=== PATIENT | male | born 1940 | race Caucasian/White ===

== ENCOUNTER 2018-03-29 14:39 | Emergency (ER) | payer MEDICARE, OTHER ==
[2018-03-29 15:53] LABS: #Basophils 0.1 thou/uL (0.0-0.2); #Eosinphils 0.6 thou/uL (0.0-0.7); #Lymphocytes 2.5 thou/uL (1.20-3.40); #Neutrophils 6.4 thou/uL (1.40-6.50); %Basophils 1.3 % (0.0-1.0); %Eosinophils 5.9 % (0.0-10.0); %Lymphocytes 23.6 % (21.0-51.0); %Monocytes 9.1 % (0.0-10.0); %Neutrophils 60.2 % (42.0-75.0); Hemoglobin 12.3 g/dL (14.0-18.0); Mean Corpuscular HGB CONC 33.4 g/dL (32.0-36.0); Mean Corpuscular Hemoglobin 29.6 pg (27.0-31.0); Mean Corpuscular Volume 88.6 fL (78.0-98.0); Mean Platelet Volume 7.5 fL (7.4-10.4); Platelet Count 270 thou/uL (130-400); RBC Distribution Width 12.6 % (11.5-14.5); Red Blood Cell (RBC) Count 4.15 mill/uL (4.70-6.10); White Blood Cell (WBC) Count 10.6 thou/uL (4.8-10.8)
[2018-03-29] MEDS ORDERED: HYDROcodone/Acetaminophen 10/325 mg Tablet ONE (15:55)
[2018-03-29] MEDS ORDERED: Enoxaparin Sodium 60 MG/0.6 ML SYRINGE ONE (15:55)
[2018-03-29] MEDS ORDERED: Enoxaparin Sodium 40 MG/0.4 ML SYRINGE ONE (15:55)
[2018-03-29 15:58] LABS: PTT 27.7 SEC (22.9-36.1); Prothrombin Time 13.5 SEC (12.0-14.7)
[2018-03-29 15:59] LABS: D-Dimer Test 2.57 *mcg/mL (0.27-0.43)
[2018-03-29 16:05] LABS: Anion Gap 15 mmol/L (10-20); BUN (Urea Nitrogen) 14 mg/dL (8.4-25.7); Calc. Creatinine Clearance 0 mL/min (70-130); Calcium 10.2 mg/dL (7.8-10.44); Carbon Dioxide 21 mmol/L (23-31); Chloride 108 mmol/L (98-107); Estimated GFR-MDRD 63; Glucose 196 mg/dL (83-110); Potassium 3.7 mmol/L (3.5-5.1); Sodium 140 mmol/L (136-145)
== END 2018-03-29 18:22 | disposition short-term general hospital (02) ==
LOC: MADERS 14:39 → EDSEX 14:39 → MADERS 18:22
DX: M79.89 Other specified soft tissue disorders (principal); G51.0 Bell's palsy; E11.9 Type 2 diabetes mellitus without complications; Z79.899 Other long term (current) drug therapy; Z79.84 Long term (current) use of oral hypoglycemic drugs
CPT/HCPCS: 80048; 84484; 85025; 85379; 85610; 85730; 96372; J1650

== ENCOUNTER 2024-01-28 11:56 | Emergency (ER) | payer OTHER ==
[2024-01-28] MEDS ORDERED: HYDROcodone/Acetaminophen 5/325 mg Tablet ONE (12:38)
== END 2024-01-28 13:03 | disposition home or self-care (01) ==
LOC: MADERS 11:56
DX: M25.561 Pain in right knee (principal); I10 Essential (primary) hypertension; J44.9 Chronic obstructive pulmonary disease, unspecified; Z79.899 Other long term (current) drug therapy; Z87.891 Personal history of nicotine dependence